=== PATIENT | female | born 1995 | race Native Hawaiian/Other Pacific Islander ===

== ENCOUNTER 2023-06-12 10:52 | Outpatient (CLI) | payer OTHER ==
[2023-06-12 11:38] LABS: PLATELET COUNT 410 K/uL (152-353)
== END 2023-06-12 19:58 | disposition home or self-care (01) ==
LOC: LABW 10:52
PROVIDERS: ATTEND Nurse Practitioner Acute Care
DX: B18.2 Chronic viral hepatitis C (principal)
CPT/HCPCS: 36415; 80053; 80061; 82105; 83036; 84443; 85027; 85610; 87522; 87535; 87900; 87902; G0432